=== PATIENT | female | born 1935 | race Caucasian/White ===

== ENCOUNTER 2016-05-27 14:55 | Emergency (ER) | payer OTHER ==
[~2016-05-27] VITALS: Ht 160 cm; Wt 100.0 kg
[~2016-05-27 14:55] MED LIST: HYDR-2768 PO; OMEP20TA39 PO; TRAM50 PO
[2016-05-27 15:21] VITALS: BP 150/65; PULSE 109; RESP 22; TEMP 102.8; O2SAT 93
[2016-05-27] MEDS ORDERED: OMEP40CA2 PO (15:34)
[2016-05-27] MEDS ORDERED: POTA99TA PO (15:34)
[2016-05-27] MEDS ORDERED: LEVO50TA4 PO (15:34)
[2016-05-27] MEDS ORDERED: VITA500030 CHEW (15:34)
[2016-05-27] MEDS ORDERED: HYDR25TA5 PO (15:34)
[2016-05-27] MEDS ORDERED: BUSP5TAB PO (15:34)
[2016-05-27 15:40] VITALS: BP 139/67; PULSE 120; RESP 18; TEMP 102.2; O2SAT 91
[2016-05-27] MEDS ORDERED: cefTAZidime INJ 2,000 MG in SODIUM CHLORIDE 0.9% INJ 100 ML IV ONE (15:45)
[2016-05-27] MEDS ORDERED: ACETAMINOPHEN 325 MG TAB PO ONE (15:45)
[2016-05-27] MEDS ORDERED: IBUPROFEN 600 MG TAB PO ONE (15:45)
[2016-05-27 15:49] VITALS: O2SAT 93
--- NOTE | 2016-05-27 15:54 | PD ---
HPI Chief Complaint: Fever Time Seen by Provider: 15:34 Travel History International Travel<30 days: No Contact w/Intl Traveler<30days: No Traveled to known affect area: No History of Present Illness HPI This patient complains of fever and chills. Duration 4 hours. Severity is moderate. She has been coughing for 4-5 days sometimes dry and sometimes thick phlegm. Denies shortness of breath. She is not having any abdominal pain or diarrhea or vomiting today. She had a liver biopsy earlier today at [facility] but she has absolute no idea why. No alleviating factors. PFSH Past Medical History Arthritis: Yes Asthma: No Autoimmune Disease: No Blood Disorders: No Anxiety: No Depression: No Heart Rhythm Problems: No Cancer: Yes ( LIVER 2005, LEFT BREAST 2010) Cardiovascular Problems: Yes High Cholesterol: Yes Chemotherapy: Yes (2005, 2010) Chest Pain: Yes (today) Congestive Heart Failure: No COPD: No Cerebrovascular Accident: No Diabetes: No Diminished Hearing: No Endocrine: Yes Gastrointestinal Disorders: Yes GERD: Yes Glaucoma: No Genitourinary: No Headaches: Yes Hepatitis: No Hiatal Hernia: Yes Hypertension: Yes Immune Disorder: No Kidney Stones: No Musculoskeletal: Yes (rt shoulder ? rotator cuff) Neurologic: No Psychiatric: No Reproductive: No Respiratory: Yes Migraines: No Myocardial Infarction: No Radiation Therapy: No Renal Failure: No Seizures: No Sleep Apnea: No Thyroid Disease: Yes (HYPOTHYROIDISM) Ulcer: Yes (PYLORIC) Influenza Vaccination: Yes ?: Not : 4 Para: 4 Ovarian Cysts: Yes Past Surgical History Abdominal Surgery: Yes (PEGGY) AICD: No Appendectomy: No Arteriovenous Shunt: No Cardiac Surgery: No Cholecystectomy: Yes Ear Surgery: No Endocrine Surgery: No Eye Surgery: No Genitourinary Surgery: No Gynecologic Surgery: Yes (HYSTERECTOMY) Hysterectomy: Yes Insulin Pump: No Joint Replacement: No Oral Surgery: Yes Pacemaker: No Thoracic Surgery: No Tonsillectomy: Yes Other Surgery: Yes (hyster, GB, teeth removed) Social History Alcohol Use: Yes (RARELY) Tobacco Use: No Substance Use: No Allergies-Medications (Allergen,Severity, Reaction): Coded Allergies: No Known Allergies (Verified , 05/27/16) Reported Meds & Prescriptions Reported Meds & Active Scripts Active Reported Buspirone (Buspirone HCl) 5 Mg Tab 5 Mg PO BID PRN Potassium 99 Mg Tab 1 Tab PO DAILY Omeprazole 40 Mg Cap 40 Mg PO DAILY Hydrochlorothiazide 25 Mg Tab 25 Mg PO DAILY Vitamin D3 (Cholecalciferol) 5,000 Unit Chew 5,000 Units CHEW DAILY Levothyroxine (Levothyroxine Sodium) 50 Mcg Tab 50 Mcg PO DAILY Review of Systems General / Constitutional: Positive: Fever, Chills Eyes: No: Visual changes HENT: No: Headaches Cardiovascular: Positive: Tachycardia, No: Chest Pain or Discomfort Respiratory: Positive: Cough, No: Shortness of Breath Gastrointestinal: No: Abdominal Pain Genitourinary: No: Dysuria Musculoskeletal: No: Pain Skin: No Rash Neurologic: No: Weakness Psychiatric: No: Depression Endocrine: No: Polydipsia Hematologic/Lymphatic: No: Easy Bruising Physical Exam Narrative GENERAL: Well-nourished, well-developed patient with fever and chills. SKIN: Warm and dry. HEAD: Atraumatic. Normocephalic. EYES: Pupils equal and round. No scleral icterus. No injection or drainage. ENT: No nasal bleeding or discharge. Mucous membranes pink and moist. Throat clear NECK: Trachea midline. No JVD. No meningeal signs CARDIOVASCULAR: Regular rate and rhythm. No murmur appreciated. RESPIRATORY: No accessory muscle use. Diffuse rhonchi. Breath sounds equal bilaterally. Sparse basilar crackles GASTROINTESTINAL: Abdomen soft, non-tender, nondistended. Hepatic and splenic margins not palpable. MUSCULOSKELETAL: No obvious deformities. No clubbing. No cyanosis. No edema. NEUROLOGICAL: Awake and alert. No obvious cranial nerve deficits. Motor grossly within normal limits. Normal speech. PSYCHIATRIC: Appropriate mood and affect; insight and judgment normal. Data Data Last Documented VS Vital Signs Date Time Temp Pulse Resp B/P Pulse Ox O2 Delivery O2 Flow Rate FiO2 05/27/16 17:15 99.0 96 18 115/53 96 Nasal Cannula 2 Orders Complete Blood Count With Diff (05/27/16 15:44) Comprehensive Metabolic Panel (05/27/16 15:44) Urinalysis - C+S If Indicated (05/27/16 15:44) Influenzae A/B Antigen (05/27/16 15:44) Blood Culture (05/27/16 15:44) Chest, Single Ap (05/27/16 15:44) Ecg Monitoring (05/27/16 15:44) Iv Access Insert/Monitor (05/27/16 15:44) Cath For Specimen (05/27/16 15:44) Oximetry (05/27/16 15:44) Acetaminophen (Tylenol) (05/27/16 15:45) Ibuprofen (Motrin) (05/27/16 15:45) Ceftazidime Inj (Fortaz Inj) (05/27/16 15:45) Lactic Acid (05/27/16 15:44) Sodium Chlor 0.9% 1000 Ml Inj (Ns 1000 M (05/27/16 16:15) Labs Laboratory Tests Test 05/27/16 05/27/16 05/27/16 16:00 16:37 16:58 White Blood Count 7.3 TH/MM3 Red Blood Count 4.43 MIL/MM3 Hemoglobin 13.7 GM/DL Hematocrit 39.5 % Mean Corpuscular Volume 89.3 FL Mean Corpuscular Hemoglobin 31.0 PG Mean Corpuscular Hemoglobin 34.7 % Concent Red Cell Distribution Width 12.9 % Platelet Count 145 TH/MM3 Mean Platelet Volume 8.2 FL Neutrophils (%) (Auto) 93.5 % Lymphocytes (%) (Auto) 3.6 % Monocytes (%) (Auto) 1.6 % Eosinophils (%) (Auto) 0.5 % Basophils (%) (Auto) 0.8 % Neutrophils # (Auto) 6.8 TH/MM3 Lymphocytes # (Auto) 0.3 TH/MM3 Monocytes # (Auto) 0.1 TH/MM3 Eosinophils # (Auto) 0.0 TH/MM3 Basophils # (Auto) 0.1 TH/MM3 CBC Comment DIFF FINAL Differential Comment Lactic Acid Level 1.7 mmol/L Sodium Level 143 MEQ/L Potassium Level 3.3 MEQ/L Chloride Level 106 MEQ/L Carbon Dioxide Level 27.7 MEQ/L Anion Gap 9 MEQ/L Blood Urea Nitrogen 14 MG/DL Creatinine 0.87 MG/DL Estimat Glomerular Filtration 62 ML/MIN Rate Random Glucose 154 MG/DL Calcium Level 8.2 MG/DL Total Bilirubin 2.4 MG/DL Aspartate Amino Transf 179 U/L (AST/SGOT) Alanine Aminotransferase 79 U/L (ALT/SGPT) Alkaline Phosphatase 336 U/L Total Protein 5.3 GM/DL Albumin 2.8 GM/DL Urine Color JENNY Urine Turbidity CLEAR Urine pH 5.5 Urine Specific [place] 1.020 Urine Protein TRACE mg/dL Urine Glucose (UA) NEG mg/dL Urine Ketones 40 mg/dL Urine Occult Blood SMALL Urine Nitrite NEG Urine Bilirubin NEG Urine Leukocyte Esterase NEG Urine RBC 0-3 /hpf Urine WBC 0-2 /hpf Urine Squamous Epithelial 0-5 /hpf Cells Urine Bacteria NONE /hpf Microscopic Urinalysis Comment CULT NOT INDICATED MDM Medical Decision Making Medical Screen Exam Complete: Yes Emergency Medical Condition: Yes Medical Record Reviewed: Yes Differential Diagnosis Pneumonia, sepsis, flu syndrome Narrative Course I have reviewed the patient's electronic medical record. Reviewed her oncologist note from last month IV placed 2 blood culture sets obtained I gave HER-2 grams IV Fortaz She received Tylenol and Motrin for fever of 102.8 CBC is normal Metabolic profile is normal LFTs are mildly elevated but I suspect this may be why she had a liver biopsy Lactate is normal Catheterized urine is clean I reviewed her chest x-ray which shows hiatal hernia which is a known chronic finding but no other suspicion of pneumonia Influenza swab is negative Patient seems to have a viral syndrome or bronchitis. I don't really see evidence of bacterial infection On reassessment her temperature is normal and now her entire vital signs are normal Tachycardia resolved with her fever I gave her a liter of normal saline IV and she is well-hydrated On recheck she feels well and wants to go home Recommend primary care follow-up Diagnosis Primary Impression: Fever chills Additional Impression: Acute viral bronchitis Additional Instructions: The patient was advised to follow up with their physician and return if they worsen. Med/Other Pt SpecificInfo: Other Disposition: 01 DISCHARGE HOME Condition: Stable Sivakumar Kinney MD May 27, 2016 15:54
--- NOTE | 2016-05-27 16:09 | RADHPO ---
EXAM DATE/TIME: 05/27/2016 15:52 [facility] COMPARISON: No previous studies available for comparison. INDICATIONS : Fever. Patient states shortness of breath and chest pains. MEDICAL HISTORY : Hypertension. Hypercholesterolemia. Liver and left breast cancer. Hiatal h ernia. SURGICAL HISTORY : [id number] . ENCOUNTER: Initial ACUITY: 3 days PAIN SCORE: 4/10 LOCATION: Bilateral chest FINDINGS: [id number] is in good position. There is a large hiatal hernia evident. Heart and pulmonary vascularity are normal. Portions of the bony skeleton visualized are unremarkable. CONCLUSION: Large hiatal hernia otherwise negative. Frank Watts MD FACR on May 27, 2016 at 16:06 Board Certified Radiologist. This report was verified electronically.
[2016-05-27] MEDS ORDERED: SODIUM CHLOR 0.9% 1000 ML INJ 1,000 ML IV ONE (16:15)
[2016-05-27 16:22] LABS: AUTOMATED NEUTROPHIL # 6.8 TH/MM3 (1.8-7.7); BASOPHIL # 0.1 TH/MM3 (0-0.2); BASOPHIL % 0.8 % (0.0-2.0); EOSINOPHIL % 0.5 % (0.0-4.0); HEMATOCRIT 39.5 % (35.0-46.0); LYMPH % 3.6 % (9.0-44.0); LYMPHOCYTE # 0.3 TH/MM3 (1.0-4.8); MEAN CELL VOLUME 89.3 FL (80.0-100.0); MEAN CORPUSCULAR HGB CONC 34.7 % (32.0-36.0); MONO % 1.6 % (0.0-8.0); NEUT % 93.5 % (16.0-70.0); PLATELET COUNT 145 TH/MM3 (150-450); RED BLOOD COUNT 4.43 MIL/MM3 (4.00-5.30); RED CELL DISTRIBUTION WIDTH 12.9 % (11.6-17.2); WHITE BLOOD COUNT 7.3 TH/MM3 (4.0-11.0)
[2016-05-27 16:26] LABS: HEMO FLAGS DIFF FINAL
[2016-05-27 16:49] LABS: CHLORIDE 106 MEQ/L (98-107); POTASSIUM 3.3 MEQ/L (3.5-5.1); SODIUM (NA) 143 MEQ/L (136-145)
[2016-05-27 16:53] LABS: ANION GAP 9 MEQ/L (5-15); BICARBONATE 27.7 MEQ/L (21.0-32.0); BLOOD UREA NITROGEN 14 MG/DL (7-18)
[2016-05-27 16:56] LABS: ALT (GPT) 79 U/L (10-53); AST (GOT) 179 U/L (15-37); GLOMERULAR FILTRATION RATE 62 ML/MIN (>89)
[2016-05-27 16:58] LABS: TOTAL BILIRUBIN ADULT 2.4 MG/DL (0.2-1.0)
[2016-05-27 16:59] LABS: ALKALINE PHOSPHATASE 336 U/L (45-117)
[2016-05-27 17:05] VITALS: BP 124/47; PULSE 103; RESP 18; O2SAT 96
[2016-05-27 17:06] LABS: BLOOD, URINE SMALL (NEG); GLUCOSE,URINE NEG (NEG); KETONE, URINE 40 mg/dL (NEG); NITRITE,URINE NEG (NEG); PH, URINE 5.5 (5.0-8.5)
[2016-05-27 17:13] LABS: COMMENT (UR) CULT NOT INDICATED; CULTURE IF INDICATED CULT NOT INDICATED; RBC, URINE 0-3 /hpf (0-3); SQUAMOUS EPITHELIAL CELL URINE 0-5 /hpf (0-5); URINE COLOR AMBER (YELLW/STRAW); WBC, URINE 0-2 /hpf (0-5)
[2016-05-27 17:15] VITALS: BP 115/53; PULSE 96; RESP 18; TEMP 99; O2SAT 96
[2016-05-27 18:16] VITALS: BP 101/52; PULSE 96; RESP 20; O2SAT 94
== END 2016-05-27 18:40 | disposition home or self-care (01) ==
LOC: PHED 14:55
DX: R50.9 Fever, unspecified (principal); J20.8 Acute bronchitis due to other specified organisms; B97.89 Other viral agents as the cause of diseases classified elsewhere; I10 Essential (primary) hypertension; E03.9 Hypothyroidism, unspecified; E78.00 Pure hypercholesterolemia, unspecified; Z98.890 Other specified postprocedural states; Z87.39 Personal history of other diseases of the musculoskeletal system and connective tissue; Z85.05 Personal history of malignant neoplasm of liver; Z85.3 Personal history of malignant neoplasm of breast; Z86.79 Personal history of other diseases of the circulatory system; Z87.19 Personal history of other diseases of the digestive system; Z87.09 Personal history of other diseases of the respiratory system
CPT/HCPCS: 71010; 80053; 81001; 83605; 85025; 87040; 87077; 87186; 87205; 87804; 96361; 96365; J0713; J7030

== ENCOUNTER 2016-05-28 10:58 | Inpatient (IN) | payer OTHER, MEDICARE ==
[~2016-05-28] VITALS: Ht 160 cm; Wt 98.5 kg
[~2016-05-28 10:58] MED LIST changes: +BUSP5TAB PO; -HYDR-2768 PO; +HYDR25TA5 PO; +LEVO50TA4 PO; -OMEP20TA39 PO; +OMEP40CA2 PO; +POTA99TA PO; -TRAM50 PO; +VITA500030 CHEW
[2016-05-28 11:10] VITALS: BP 139/65; PULSE 71; RESP 20; TEMP 97.8; O2SAT 97
[2016-05-28 11:37] VITALS: BP 137/54; PULSE 70; RESP 16; O2SAT 97
[2016-05-28] MEDS ORDERED: PIPERACIL-TAZO 3.375 GM PREMIX 50 ML IV ONE (11:45)
[2016-05-28] MEDS ORDERED: SODIUM CHLORID 0.9% 500 ML INJ 500 ML IV ONE (11:45)
[2016-05-28 11:47] LABS: AUTOMATED NEUTROPHIL # 10.8 TH/MM3 (1.8-7.7); BASOPHIL % 0.2 % (0.0-2.0); EOSINOPHIL % 0.4 % (0.0-4.0); HEMATOCRIT 39.5 % (35.0-46.0); LYMPH % 2.6 % (9.0-44.0); LYMPHOCYTE # 0.3 TH/MM3 (1.0-4.8); MEAN CELL VOLUME 89.8 FL (80.0-100.0); MEAN CORPUSCULAR HEMOGLOBIN 30.3 PG (27.0-34.0); MEAN CORPUSCULAR HGB CONC 33.7 % (32.0-36.0); MONO % 3.2 % (0.0-8.0); NEUT % 93.6 % (16.0-70.0); PLATELET COUNT 155 TH/MM3 (150-450); RED CELL DISTRIBUTION WIDTH 12.9 % (11.6-17.2); WHITE BLOOD COUNT 11.5 TH/MM3 (4.0-11.0)
[2016-05-28 11:48] LABS: HEMO FLAGS AUTO DIFF
[2016-05-28 11:59] LABS: APTT (PATIENT) 30.5 SEC (24.3-30.1); INTERNATIONAL NORMALIZED RATIO 1.1 RATIO
[2016-05-28 12:04] LABS: POTASSIUM 3.3 MEQ/L (3.5-5.1)
--- NOTE | 2016-05-28 12:04 | PD ---
HPI Chief Complaint: Abnormal Results Time Seen by Provider: 11:19 Travel History International Travel<30 days: No Contact w/Intl Traveler<30days: No Traveled to known affect area: No History of Present Illness HPI Patient is an 80-year-old female who comes to the emergency department because she was called back due to positive blood cultures. She was seen here yesterday complaining of cough and feeling unwell. She was found to be febrile and blood culture were sent. Blood cultures found to be growing gram-negative rods in all 4 bottles. Today patient states she still feels unwell. She has been coughing and just feeling generally run down for the past few days. She has history of lymphoma that was in remission. However she was recently found to have elevated liver function testing, and underwent a liver biopsy yesterday. She does not know the results of this yet. Patient says she has had rigorous chills. She denies chest pain. She denies shortness of breath. She has not had nausea or vomiting. She does report abdominal pain. PFSH Past Medical History Arthritis: Yes Asthma: No Autoimmune Disease: No Blood Disorders: No Anxiety: No Depression: No Heart Rhythm Problems: No Cancer: Yes ( LIVER 2005, LEFT BREAST 2010) Cardiovascular Problems: Yes High Cholesterol: Yes Chemotherapy: Yes (2005, 2010) Chest Pain: Yes (today) Congestive Heart Failure: No COPD: No Cerebrovascular Accident: No Diabetes: No Diminished Hearing: No Endocrine: Yes Gastrointestinal Disorders: Yes GERD: Yes Glaucoma: No Genitourinary: No Headaches: Yes Hepatitis: No Hiatal Hernia: Yes Hypertension: Yes Immune Disorder: No Implanted Vascular Access Dvce: No Kidney Stones: No Musculoskeletal: Yes (rt shoulder ? rotator cuff) Neurologic: No Psychiatric: No Reproductive: No Respiratory: Yes Migraines: No Myocardial Infarction: No Radiation Therapy: No Renal Failure: No Seizures: No Sleep Apnea: No Thyroid Disease: Yes (HYPOTHYROIDISM) Ulcer: Yes (PYLORIC) Tetanus Vaccination: Unknown ?: Not : 4 Para: 4 Ovarian Cysts: Yes Past Surgical History Abdominal Surgery: Yes (PEGGY) AICD: No Appendectomy: No Arteriovenous Shunt: No Cardiac Surgery: No Cholecystectomy: Yes Ear Surgery: No Endocrine Surgery: No Eye Surgery: No Genitourinary Surgery: No Gynecologic Surgery: Yes (HYSTERECTOMY) Hysterectomy: Yes Insulin Pump: No Joint Replacement: No Neurologic Surgery: No Oral Surgery: Yes Pacemaker: No Thoracic Surgery: No Tonsillectomy: Yes Other Surgery: Yes (hyster, GB, teeth removed) Social History Alcohol Use: Yes (RARELY) Tobacco Use: No Substance Use: No Allergies-Medications (Allergen,Severity, Reaction): Coded Allergies: No Known Allergies (Verified , 05/28/16) Reported Meds & Prescriptions Reported Meds & Active Scripts Active Reported Buspirone (Buspirone HCl) 5 Mg Tab 5 Mg PO BID PRN Potassium 99 Mg Tab 1 Tab PO DAILY Omeprazole 40 Mg Cap 40 Mg PO DAILY Hydrochlorothiazide 25 Mg Tab 25 Mg PO DAILY Vitamin D3 (Cholecalciferol) 5,000 Unit Chew 5,000 Units CHEW DAILY Levothyroxine (Levothyroxine Sodium) 50 Mcg Tab 50 Mcg PO DAILY Review of Systems Except as stated in HPI: all other systems reviewed are Neg General / Constitutional: Positive: Fever, Chills HENT: No: Headaches Cardiovascular: No: Chest Pain or Discomfort Respiratory: Positive: Cough, No: Shortness of Breath Gastrointestinal: Positive: Abdominal Pain Genitourinary: No: Dysuria Musculoskeletal: Positive: Myalgias Skin: No Rash Neurologic: No: Weakness, Dizziness Physical Exam Narrative GENERAL: Awake and alert, in no acute distress. SKIN: Warm and dry. HEAD: Atraumatic. Normocephalic. EYES: Pupils equal and round. No scleral icterus. ENT: Mucous membranes pink and moist. NECK: Trachea midline. No JVD. CARDIOVASCULAR: Regular rate and rhythm. No murmur appreciated. RESPIRATORY: No accessory muscle use. Clear to auscultation. Breath sounds equal bilaterally. GASTROINTESTINAL: Abdomen soft, nondistended. Dressing in place of her biopsy site, no signs of bleeding. Tender over the right upper quadrant. No rebound or guarding. MUSCULOSKELETAL: No obvious deformities. No clubbing. No cyanosis. No edema. NEUROLOGICAL: Awake and alert. No obvious cranial nerve deficits. Motor grossly within normal limits. Normal speech. PSYCHIATRIC: Appropriate mood and affect; insight and judgment normal. Data Data Last Documented VS Vital Signs Date Time Temp Pulse Resp B/P Pulse Ox O2 Delivery O2 Flow Rate FiO2 05/28/16 12:44 72 16 110/50 98 Room Air 05/28/16 11:10 97.8 Orders Complete Blood Count With Diff (05/28/16 11:33) Basic Metabolic Panel (Bmp) (05/28/16 11:33) Hepatic Functional Panel (05/28/16 11:33) Act Partial Throm Time (Ptt) (05/28/16 11:33) Prothrombin Time / Inr (Pt) (05/28/16 11:33) Blood Culture (05/28/16 11:33) Sodium Chlorid 0.9% 500 Ml Inj (Ns 500 M (05/28/16 11:45) Piperacil-Tazo 3.375 Gm Premix (Zosyn 3. (05/28/16 11:45) Ct Abd/Pel W Iv Contrast(Rout) (05/28/16 ) Chest, Pa & Lat (05/28/16 ) Admit Order (Ed Use Only) (05/28/16 ) Piperacil-Tazo 3.375 Gm Premix (Zosyn 3. (05/28/16 18:00) Lactic Acid Sepsis Protocol (05/28/16 13:38) Consult Infectious Disease (05/28/16 ) Admit To Inpatient (05/28/16 ) Vital Signs (Adult) Q4H (05/28/16 13:38) Activity Oob Ad Shae (05/28/16 13:38) Diet Regular Basic (05/28/16 Lunch) Sodium Chlor 0.9% 1000 Ml Inj (Ns 1000 M (05/28/16 13:38) Sodium Chloride 0.9% Flush (Ns Flush) (05/28/16 13:45) Sodium Chloride 0.9% Flush (Ns Flush) (05/28/16 21:00) Acetaminophen (Tylenol) (05/28/16 13:45) Ondansetron Inj (Zofran Inj) (05/28/16 13:45) Docusate Sodium (Colace) (05/28/16 13:45) Magnesium Hydroxide Liq (Milk Of Magnesi (05/28/16 13:45) Comprehensive Metabolic Panel (05/29/16 06:00) Complete Blood Count With Diff (05/29/16 06:00) Pt Request For Service (05/28/16 13:38) Case Management Consult (05/28/16 13:38) Scd Bilateral/Knee High RYAN.BID (05/28/16 13:38) Naloxone Inj (Narcan Inj) (05/28/16 13:45) Inpatient Certification (05/28/16 ) Labs Laboratory Tests Test 05/28/16 05/28/16 11:15 13:25 White Blood Count 11.5 TH/MM3 Red Blood Count 4.40 MIL/MM3 Hemoglobin 13.3 GM/DL Hematocrit 39.5 % Mean Corpuscular Volume 89.8 FL Mean Corpuscular Hemoglobin 30.3 PG Mean Corpuscular Hemoglobin 33.7 % Concent Red Cell Distribution Width 12.9 % Platelet Count 155 TH/MM3 Mean Platelet Volume 8.2 FL Neutrophils (%) (Auto) 93.6 % Lymphocytes (%) (Auto) 2.6 % Monocytes (%) (Auto) 3.2 % Eosinophils (%) (Auto) 0.4 % Basophils (%) (Auto) 0.2 % Neutrophils # (Auto) 10.8 TH/MM3 Lymphocytes # (Auto) 0.3 TH/MM3 Monocytes # (Auto) 0.4 TH/MM3 Eosinophils # (Auto) 0.0 TH/MM3 Basophils # (Auto) 0.0 TH/MM3 CBC Comment AUTO DIFF Differential Total Cells 100 Counted Neutrophils % (Manual) 61 % Band Neutrophils % 34 % Lymphocytes % 3 % Monocytes % 1 % Basophils % 1 % Neutrophils # (Manual) 10.9 TH/MM3 Differential Comment FINAL DIFF MANUAL Platelet Estimate NORMAL Platelet Morphology Comment NORMAL Red Cell Morphology Comment NORMAL Erythrocyte Sedimentation Rate 8 mm/hr Prothrombin Time 12.0 SEC Prothromb Time International 1.1 RATIO Ratio Activated Partial 30.5 SEC Thromboplast Time Sodium Level 142 MEQ/L Potassium Level 3.3 MEQ/L Chloride Level 107 MEQ/L Carbon Dioxide Level 25.5 MEQ/L Anion Gap 10 MEQ/L Blood Urea Nitrogen 22 MG/DL Creatinine 1.00 MG/DL Estimat Glomerular Filtration 53 ML/MIN Rate Random Glucose 80 MG/DL Calcium Level 8.1 MG/DL Total Bilirubin 3.0 MG/DL Direct Bilirubin 1.5 MG/DL Indirect Bilirubin 1.5 MG/DL Aspartate Amino Transf 94 U/L (AST/SGOT) Alanine Aminotransferase 107 U/L (ALT/SGPT) Alkaline Phosphatase 282 U/L Lactate Dehydrogenase 294 U/L Total Protein 5.6 GM/DL Albumin 2.9 GM/DL Lactic Acid Level 2.2 mmol/L MDM Medical Decision Making Medical Screen Exam Complete: Yes Emergency Medical Condition: Yes Medical Record Reviewed: Yes Differential Diagnosis Bacteremia versus sepsis versus pneumonia versus intra-abdominal infection Narrative Course Patient is an 80-year-old female who comes in because she had positive blood cultures. She says she has been feeling unwell for the past few days, with cough and just general malaise. She also reports shaking chills. IV established, patient connected to the cloth handler. Labs sent show an elevation in her white count to 11.5. Her liver function testing is grossly abnormal. This is likely why she had a liver biopsy performed yesterday. X-ray shows no evidence of pneumonia. CT abdomen and pelvis ordered due to abnormal liver function tests. Patient given Zosyn. Admitted for further management. Diagnosis Primary Impression: Bacteremia Admitting Information Admitting Physician Requests: Admit Lyndsay Crenshaw MD May 28, 2016 12:04
[2016-05-28 12:07] LABS: BANDS 34 % (0-6); BASOPHILS 1 % (0-2); NEUTROPHIL # MANUAL DIFF 10.9 TH/MM3 (1.8-7.7); POLYS (SEG NEUTROPHILS) 61 % (16-70); WBC DIFF SAMPLE 100
[2016-05-28 12:08] LABS: BICARBONATE 25.5 MEQ/L (21.0-32.0); PLATELET ESTIMATE SMEAR NORMAL (NORMAL); PLATELET MORPHOLOGY NORMAL (NORMAL); SCAN/DIFF FINAL DIFF MANUAL
[2016-05-28 12:13] LABS: INDIRECT BILIRUBIN 1.5 MG/DL (0.0-0.8)
[2016-05-28 12:44] VITALS: BP 110/50; PULSE 72; RESP 16; O2SAT 98
--- NOTE | 2016-05-28 13:01 | RADHPO ---
EXAM DATE/TIME: 05/28/2016 12:22 [facility] COMPARISON: CHEST SINGLE AP, May 27, 2016, 15:52. INDICATIONS : Cough. Abnormal lab results from yesterday's ED visit. Patient is also post liver biopsy from another facility yesterday. MEDICAL HISTORY : Lupus. Ulcers. Gastroesophageal reflux disease. Hypertension. Hypercholesterolemia. Liver and lef t breast cancer. Hiatal hernia. SURGICAL HISTORY : Tonsillectomy. Cholecystectomy. Hysterectomy. [id number] . ENCOUNTER: [facility] ACUITY: 2 days PAIN SCORE: 0/10 LOCATION: chest FINDINGS: PA and lateral views of the chest demonstrate the lungs to be symmetrically aerated without evidence of mass, infiltrate or effusion. The cardiomediastinal contours are unremarkable. There is a moderat e size retrocardiac hiatal hernia in noted. Atherosclerotic calcifications are present in the aorta. The right-sided implantable port catheter remains in place. Osseous structures are intact. CONCLUSION: 1. No acute cardiopulmonary disease. 2. Moderate size retrocardiac hiatal hernia. Andry Tony MD on May 28, 2016 at 12:59 Board Certified Radiologist. This report was verified electronically.
[2016-05-28] MEDS ORDERED: ONDANSETRON HCL 4 MG/2 ML VIAL IVP PRN (13:45)
[2016-05-28] MEDS: DOCUSATE SODIUM 100 MG CAP PO SCH ×2 (13:45→23:55)
[2016-05-28] MEDS ORDERED: busPIRone HCL 5 MG TAB PO PRN (13:45)
[2016-05-28] MEDS ORDERED: MAGNESIUM HYDROXIDE SUSP 30 ML CUP PO PRN (13:45)
[2016-05-28] MEDS ORDERED: ACETAMINOPHEN 325 MG TAB PO PRN (13:45)
[2016-05-28] MEDS ORDERED: NALOXONE HCL 0.4 MG/ML AMP IV PRN (13:45)
[2016-05-28] MEDS ORDERED: IOHEXOL 350 MG/ML 10 ML VIAL (for RAD DIAG) IV ONE (13:48)
--- NOTE | 2016-05-28 14:01 | RADHPO ---
EXAM DATE/TIME: 05/28/2016 13:32 [facility] COMPARISON: CT PULMONARY ANGIOGRAM, June 09, 2013, 5:59. INDICATIONS : Abnormal lab results. Fever and infection. IV CONTRAST: 90 cc Omnipaque 350 (iohexol) IV ORAL CONTRAST: No oral contrast ingested. RADIATION DOSE: 21.99 CTDIvol (mGy) MEDICAL HISTORY : Lymphoma. Carcinoma, breast. Hypertension.Liver cancer. SURGICAL HISTORY : Hysterectomy. ENCOUNTER: Initial ACUITY: 2 days PAIN SCALE: 0/10 LOCATION: abdomen/pelvis TECHNIQUE: Volumetric scanning of the abdomen and pelvis was performed. Using automated exposure control and ad justment of the mA and/or kV according to patient size, radiation dose was kept as low as reasonably achievable to obtain optimal diagnostic quality images. FINDINGS: The limited portion of the lung base visualized is clear. The examination does demonstrate a large hi atal hernia. The appearance of the liver, spleen, pancreas, adrenal glands and kidneys is within normal limits. Th e patient is post cholecystectomy. There is atherosclerotic plaquing in the abdominal aorta. The abdominal aorta is somewhat small in si ze but patent throughout its course. There is no retroperitoneal lymphadenopathy. The visualized loops of small and large bowel in the upper abdomen are unremarkable. The patient is post hysterectomy. The left ovary is visualized and measures approximately 1 cm. There is no free fluid within the pelvis. No iliac or inguinal adenopathy is seen. The visualized bony structures demonstrate degenerative changes but are otherwise intact. CONCLUSION: 1. Large hiatal hernia. 2. The patient is post cholecystectomy. 3. There are degenerative changes of the spine. 4. No findings to indicate intra-abdominal abscess identified. Brian Watts MD on May 28, 2016 at 13:55 Board Certified Radiologist. This report was verified electronically.
[2016-05-28] MEDS: SODIUM CHLOR 0.9% 1000 ML INJ 1,000 ML IV SCH ×2 (14:08→23:56)
[2016-05-28 15:29] LABS: BLOOD, URINE TRACE (NEG); GLUCOSE,URINE NEG (NEG); KETONE, URINE TRACE mg/dL (NEG); NITRITE,URINE NEG (NEG); PH, URINE 5.5 (5.0-8.5)
[2016-05-28 15:32] VITALS: BP 134/67; PULSE 69; RESP 16; O2SAT 98
[2016-05-28 15:48] LABS: LACTIC ACID GHOST NOT REPORTABLE
[2016-05-28 16:25] LABS: METHOD OF COLLECTION CLEAN CATCH; URINE COLOR YELLOW (YELLW/STRAW)
[2016-05-28 16:26] LABS: WBC, URINE 0-2 /hpf (0-5)
[2016-05-28 16:27] LABS: SQUAMOUS EPITHELIAL CELL URINE 0-5 /hpf (0-5)
--- NOTE | 2016-05-28 16:55 | HHI.HP ---
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 She was referred for a liver biopsy by her lieutenant ballistics Dr. Gonzales. She underwent this procedure yesterday at [facility]. After the procedure she started to have shaking chills. These chills continued into the evening along with a fever of 103 and so she presented to the ER last night. She also has complained of a cough productive of clear sputum over the past 4-5 days however that has been improving and she has not had any shortness of breath. Blood cultures were taken last night in the ER but as the patient seemed to be feeling better she was diagnosed with a virus infection and sent home. Today the blood cultures are growing gram-negative rods in 2 sets. She was called by the ER and referred back in for further evaluation. The patient denies any nausea vomiting abdominal pain. Doesn't denies any dysuria. She has had a cholecystectomy in the past. She denies any in on any antibiotics recently. Denies previous history of sepsis. Of note about a month ago she was having some left-sided sharp abdominal pain and occasional morning emesis for which she was seeing Dr. tripathi ago but this has resolved. Review of Systems Constitutional: COMPLAINS OF: Fever, Chills Respiratory: COMPLAINS OF: Cough, Sputum production, DENIES: Shortness of breath Cardiovascular: DENIES: Chest pain, Palpitations Gastrointestinal: DENIES: Abdominal pain, Diarrhea, Nausea, Vomiting Genitourinary: DENIES: Urinary frequency, Dysuria Musculoskeletal: DENIES: Back pain, Neck pain Integumentary: DENIES: Pruritus, Rash Hematologic/lymphatic: DENIES: Lymphadenopathy Neurologic: DENIES: Headache Psychiatric: COMPLAINS OF: Anxiety, DENIES: Confusion Past Family Social History Past Medical History Anxiety for which she takes BuSpar own when necessary Hiatal hernia 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, stopped en route to extend this past March has history of 3 relapses in the past Hypertension Transaminitis and elevation of bilirubin Hyperlipidemia Hypothyroidism Obesity Past Surgical History Cholecystectomy Hysterectomy Liver biopsy and intra-abdominal biopsy Reported Medications Allergies Coded Allergies Type Severity Reaction Last Updated Verified No Known Allergies 05/28/16 Yes Active Scripts Medications Dose Route/Sig Days Date Category Buspirone (Buspirone HCl) 5 Mg Tab 5 Mg PO BID PRN 05/27/16 Reported Potassium 99 Mg Tab 1 Tab PO DAILY 05/27/16 Reported Omeprazole 40 Mg Cap 40 Mg PO DAILY 05/27/16 Reported Hydrochlorothiazide 25 Mg Tab 25 Mg PO DAILY 05/27/16 Reported Vitamin D3 (Cholecalciferol) 5,000 Unit Chew 5,000 Units CHEW DAILY 05/27/16 Reported Levothyroxine (Levothyroxine Sodium) 50 Mcg Tab 50 Mcg PO DAILY 05/27/16 Reported Allergies: Coded Allergies: No Known Allergies (Verified , 05/28/16) Family History Her mother had CHF Social History . No history of tobacco use. Physical Exam Vital Signs Vital Signs Date Time Temp Pulse Resp B/P Pulse Ox O2 Delivery O2 Flow Rate FiO2 05/28/16 15:32 69 16 134/67 98 Room Air 05/28/16 12:44 72 16 110/50 98 Room Air 05/28/16 11:37 70 16 137/54 97 Room Air 05/28/16 11:16 16 97 Room Air 05/28/16 11:10 97.8 71 20 139/65 97 Physical Exam GENERAL: Well-nourished, well-developed obese female patient. SKIN: Warm and dry. HEAD: Normocephalic. EYES: No scleral icterus. No injection or drainage. NECK: Supple, trachea midline. No JVD or lymphadenopathy. CARDIOVASCULAR: Regular rate and rhythm without murmurs, gallops, or rubs. RESPIRATORY: Breath sounds equal and clear to auscultation bilaterally. No accessory muscle use. GASTROINTESTINAL: Abdomen soft, non-tender, nondistended. EXTREMITIES: No cyanosis, or edema. NEUROLOGICAL: Awake, alert, and oriented x 3. Non-focal. Laboratory Laboratory Tests Test 05/28/16 05/28/16 05/28/16 11:15 13:25 15:15 White Blood Count 11.5 Red Blood Count 4.40 Hemoglobin 13.3 Hematocrit 39.5 Mean Corpuscular Volume 89.8 Mean Corpuscular Hemoglobin 30.3 Mean Corpuscular Hemoglobin 33.7 Concent Red Cell Distribution Width 12.9 Platelet Count 155 Mean Platelet Volume 8.2 Neutrophils (%) (Auto) 93.6 Lymphocytes (%) (Auto) 2.6 Monocytes (%) (Auto) 3.2 Eosinophils (%) (Auto) 0.4 Basophils (%) (Auto) 0.2 Neutrophils # (Auto) 10.8 Lymphocytes # (Auto) 0.3 Monocytes # (Auto) 0.4 Eosinophils # (Auto) 0.0 Basophils # (Auto) 0.0 CBC Comment AUTO DIFF Differential Total Cells 100 Counted Neutrophils % (Manual) 61 Band Neutrophils % 34 Lymphocytes % 3 Monocytes % 1 Basophils % 1 Neutrophils # (Manual) 10.9 Differential Comment FINAL DIFF MANUAL Platelet Estimate NORMAL Platelet Morphology Comment NORMAL Red Cell Morphology Comment NORMAL Erythrocyte Sedimentation Rate 8 Prothrombin Time 12.0 Prothromb Time International 1.1 Ratio Activated Partial 30.5 Thromboplast Time Sodium Level 142 Potassium Level 3.3 Chloride Level 107 Carbon Dioxide Level 25.5 Anion Gap 10 Blood Urea Nitrogen 22 Creatinine 1.00 Estimat Glomerular Filtration 53 Rate Random Glucose 80 Calcium Level 8.1 Total Bilirubin 3.0 Direct Bilirubin 1.5 Indirect Bilirubin 1.5 Aspartate Amino Transf 94 (AST/SGOT) Alanine Aminotransferase 107 (ALT/SGPT) Alkaline Phosphatase 282 Lactate Dehydrogenase 294 Total Protein 5.6 Albumin 2.9 Lactic Acid Level 2.2 Urine Collection Type CLEAN CATCH Urine Color YELLOW Urine Turbidity CLEAR Urine pH 5.5 Urine Specific [place] GREATER THAN 1.035 Urine Protein NEG Urine Glucose (UA) NEG Urine Ketones TRACE Urine Occult Blood TRACE Urine Nitrite NEG Urine Bilirubin SMALL Urine Leukocyte Esterase NEG Urine WBC 0-2 Urine Squamous Epithelial 0-5 Cells Date/Time Procedure Status Source Growth 05/28/16 15:15 Urine Culture Received Urine Clean Catch Pending 05/28/16 11:30 Aerobic Blood Culture Received Blood Peripheral Pending 05/28/16 11:30 Anaerobic Blood Culture Received Blood Peripheral Pending Result Diagram: 05/28/16 1115 05/28/16 1115 Imaging Last Impressions Chest X-Ray 05/28/16 0000 Signed Impressions: Service Date/Time: Saturday, May 28, 2016 12:22 - CONCLUSION: 1. No acute cardiopulmonary disease. 2. Moderate size retrocardiac hiatal hernia. Andry Tony MD Abdomen/Pelvis CT 05/28/16 0000 Signed Impressions: Service Date/Time: Saturday, May 28, 2016 13:32 - CONCLUSION: 1. Large hiatal hernia. 2. The patient is post cholecystectomy. 3. There are degenerative changes of the spine. 4. No findings to indicate intra-abdominal abscess identified. Brian Watts MD Assessment and Plan Assessment and Plan -Gram-negative edin bacteremia and sepsis, unclear source but presumably could be from the liver biopsy she underwent yesterday. We'll continue Zosyn IV. Clinically she is stable. We'll consult infectious disease for further input and recommendations. I will check a mandatory urine culture. Abdominal CT scan was negative. Initial lactate was 2.2 but repeat is 1.1. Continue IV fluids overnight. Anxiety - cont BuSpar own when necessary Hiatal hernia - continue Protonix. 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 Transaminitis and elevation of bilirubin - being followed by Dr. tripathi-ol[place]. Status post liver biopsy yesterday. Hyperlipidemia Hypothyroidism-continue Synthroid Obesity DVT prophylaxis with SCDs. Isaura Bazan MD May 28, 2016 16:55
[2016-05-28 17:38] VITALS: BP 143/75; PULSE 76; RESP 16; O2SAT 96
[2016-05-28] MEDS: PIPERACIL-TAZO 3.375 GM PREMIX 50 ML IV SCH ×2 (18:13→23:55)
[2016-05-28 20:00] VITALS: BP 129/55; PULSE 79; RESP 20; TEMP 99.4; O2SAT 97
[2016-05-28] MEDS: SODIUM CHLORIDE 0.9% FLUSH 5 ML FLUSH FLUSH SCH (21:00)
[2016-05-29] VITALS: BP 140/77; PULSE 75; RESP 20; TEMP 98.3; O2SAT 98
[2016-05-29 04:00] VITALS: BP 150/75; PULSE 82; RESP 20; TEMP 97.5; O2SAT 99
[2016-05-29] MEDS: PIPERACIL-TAZO 3.375 GM PREMIX 50 ML IV SCH ×3 (05:28→17:55)
[2016-05-29] MEDS: LEVOTHYROXINE SODIUM 50 MCG TAB PO SCH (05:28)
[2016-05-29 06:49] LABS: AUTOMATED NEUTROPHIL # 6.8 TH/MM3 (1.8-7.7); BASOPHIL % 0.2 % (0.0-2.0); EOSINOPHIL # 0.1 TH/MM3 (0-0.4); EOSINOPHIL % 1.8 % (0.0-4.0); HEMATOCRIT 36.2 % (35.0-46.0); LYMPH % 4.8 % (9.0-44.0); LYMPHOCYTE # 0.4 TH/MM3 (1.0-4.8); MEAN CELL VOLUME 91.1 FL (80.0-100.0); MEAN CORPUSCULAR HEMOGLOBIN 30.7 PG (27.0-34.0); MEAN CORPUSCULAR HGB CONC 33.8 % (32.0-36.0); MONO % 5.3 % (0.0-8.0); NEUT % 87.9 % (16.0-70.0); PLATELET COUNT 130 TH/MM3 (150-450); RED BLOOD COUNT 3.98 MIL/MM3 (4.00-5.30); WHITE BLOOD COUNT 7.7 TH/MM3 (4.0-11.0)
[2016-05-29 06:52] LABS: CHLORIDE 106 MEQ/L (98-107); SODIUM (NA) 142 MEQ/L (136-145)
[2016-05-29 06:53] LABS: HEMO FLAGS AUTO DIFF
[2016-05-29 06:56] LABS: ANION GAP 11 MEQ/L (5-15); BICARBONATE 25.2 MEQ/L (21.0-32.0)
[2016-05-29 06:57] LABS: BLOOD UREA NITROGEN 15 MG/DL (7-18)
[2016-05-29 06:59] LABS: ALT (GPT) 73 U/L (10-53); AST (GOT) 48 U/L (15-37)
[2016-05-29 07:00] LABS: GLOMERULAR FILTRATION RATE 69 ML/MIN (>89)
[2016-05-29 07:01] LABS: TOTAL BILIRUBIN ADULT 3.8 MG/DL (0.2-1.0)
[2016-05-29 07:02] LABS: ALKALINE PHOSPHATASE 272 U/L (45-117)
[2016-05-29 07:19] LABS: SCAN/DIFF AUTO DIFF CONFIRMED
[2016-05-29 08:00] VITALS: BP 133/80; PULSE 81; RESP 18; TEMP 98; O2SAT 96
[2016-05-29] MEDS ORDERED: HYDROCHLOROTHIAZIDE 25 MG TAB PO SCH (09:00)
[2016-05-29] MEDS: SODIUM CHLORIDE 0.9% FLUSH 5 ML FLUSH FLUSH SCH ×2 (09:00→20:33)
[2016-05-29] MEDS: SODIUM CHLOR 0.9% 1000 ML INJ 1,000 ML IV SCH (09:26)
[2016-05-29] MEDS: PANTOPRAZOLE SOD 40 MG DELAYED RELEASE TAB PO SCH (09:26)
--- NOTE | 2016-05-29 11:50 | HHI.PR ---
Subjective Remarks Patient seen and examined today with Dr. Bazan. Patient has been afebrile. Patient states that she has some upper respiratory phlegm and cough. Objective Vitals Vital Signs Date Time Temp Pulse Resp B/P Pulse Ox O2 Delivery O2 Flow Rate FiO2 05/29/16 08:00 98.0 81 18 133/80 96 05/29/16 04:00 97.5 82 20 150/75 99 05/29/16 00:00 98.3 75 20 140/77 98 05/28/16 20:00 99.4 79 20 129/55 97 05/28/16 20:00 99.4 79 20 129/55 97 05/28/16 17:38 76 16 143/75 96 Room Air 05/28/16 15:32 69 16 134/67 98 Room Air 05/28/16 12:44 72 16 110/50 98 Room Air I/O 05/28/16 05/28/16 05/28/16 05/29/16 05/29/16 05/29/16 07:00 15:00 23:00 07:00 15:00 23:00 Intake Total 550 ml 240 ml 60 ml Balance 550 ml 240 ml 60 ml Intake Oral 240 ml 60 ml IV Total 550 ml # Voids 2 1 # Bowel Movements 0 0 Result Diagram: 05/29/1661405/29/1615 Objective Remarks GENERAL: Well-developed, well-nourished, in no acute distress. alert and orientated HEENT: Head is normocephalic without any lesions or masses noted. Facial features are symmetric. Eyes: Extraocular muscles are intact. Conjunctivae were clear. NECK: Supple without any masses. Trachea midline no deviation. No JVD, CARDIAC: Regular rhythm, regular rate. S1/S2 are heard. No murmurs gallops or rubs. LUNGS: Clear to auscultation bilaterally. No wheeze, rhonchi or rales. No use of accessory muscles on inspiration or expiration. ABDOMEN: Soft, nontender. Nondistended. Bowel sounds heard in all 4 quadrants. No organomegaly or masses. Negative rebound, negative guarding EXTREMITIES: Mild nonpitting edema noted in bilateral ankles, pulses are equal bilaterally. No cyanosis or clubbing NEUROLOGY: Mood and affect appear appropriate. Cranial nerves II through XII grossly intact. Moving all extremities, speech is clear Urinary Catheter: No Vascular Central Line Catheter: No A/P Assessment and Plan Gram-negative edin bacteremia and sepsis, unclear source but must be GI in etiology _discussed with ID/Dr. Alvarez continue Zosyn IV. urine culture: NGTD Abdominal CT scan was negative. Initial lactate was 2.2 but repeat is 1.1. will HLIV -She does have an infusaport as well. -Will contact her GI tomorrow Dr. Arana to find out when most recent EGD/ colonoscopy was Anxiety cont BuSpar only when necessary Hiatal hernia continue Protonix. 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 Transaminitis and elevation of bilirubin being followed by Dr. Kidd. Status post liver biopsy day of admission Hypothyroidism Synthroid DVT prophylaxis Sequential compression devices. Written by Sivakumar Wallace PA-C, acting as scribe for Dr. Bazan on 05/29/16 at 17:00 The documentation accurately reflects the work and decisions performed face-to- face by Dr. Bazan on 05/29/16 at 17:00. Sivakumar Wallace May 29, 2016 11:50 Isaura Bazan MD May 29, 2016 18:41
[2016-05-29 12:00] VITALS: BP 157/85; PULSE 82; RESP 18; TEMP 98; O2SAT 97
[2016-05-29] MEDS ORDERED: POTASSIUM CHLORIDE 20 MEQ CONTROLLED RELEASE TAB PO ONE (12:00)
[2016-05-29] MEDS ORDERED: PROMETHAZINE PO PRN (12:00)
[2016-05-29] MEDS ORDERED: [UNRECOGNIZED DRUG - OTHER] PO PRN (12:00)
[2016-05-29] MEDS: guaiFENesin E.R. 600 MG TAB PO SCH ×2 (12:24→20:33)
[2016-05-29] MEDS: DOCUSATE SODIUM 100 MG CAP PO SCH ×2 (12:24→12:35)
--- NOTE | 2016-05-29 12:45 | PD.ID.CON ---
History of Present Illness Service ID Consult Requested By Reason for Consult Evaluation and Mment of Gram negative bacteremia. Primary Care Physician Serge Calvo MD Diagnoses: History of Present Illness is an 80 y/o CF with PMHx of low-grade B-cell lymphoma followed by Dr. Burciaga who recently started seeing him after her doctors were switched reportedly. She reports she also sees her GI doctor. On routine blood work her liver function tests were abnormal and she reports initially it was thought to be due to her statins which are now on hold. Despite holding her statins the LFTs continued to be high so she was referred for a liver biopsy by her stucco laborer. She underwent this procedure a day at [facility] a day prior to her ED visit at [facility]. After the procedure she started having chills and continued into the evening along with a fever of 103 and so she presented to the ER last night. She also has complained of a cough productive of clear sputum over the past 4-5 days however that has been improving and she has not had any shortness of breath. Blood cultures were taken last night in the ER but as the patient seemed to be feeling better she was diagnosed with a virus infection and sent home. When the blood cultures are growing gram-negative rods in 2 sets. She was called by the ER and referred back in for further evaluation. ID is consulted for evaluation and M'ment of gram negative bacteremia. Pertinent positives and negatives: Patient reports she had upper abdominal pain, nausea and vomiting and this was determined to be secondary to hiatal hernia. This resolved 2 weeks back. Doesn't denies any dysuria. She has had a cholecystectomy in the past. She denies any in on any antibiotics recently. Denies prior port infections. Reports last colonoscopy was ok. EGD with multiple issues per patient. Reports large hiatal hernia. Review of Systems Constitutional: COMPLAINS OF: Fever, Chills, DENIES: Diaphoretic episodes, Fatigue, Weight gain, Weight loss, Dizziness, Change in appetite, Night Sweats Endocrine: DENIES: Abnorml menstrual pattern, Heat/cold intolerance, Polydipsia , Polyuria, Polyphagia Eyes: DENIES: Blurred vision, Diplopia, Eye inflammation, Eye pain, Vision loss , Photosensitivity, Double Vision Ears, nose, mouth, throat: DENIES: Tinnitus, Hearing loss, Vertigo, Nasal discharge, Oral lesions, Throat pain, Hoarseness, Ear Pain, Running Nose, Epistaxis, Sinus Pain, Toothache, Odynophagia Respiratory: DENIES: Apneas, Cough, Snoring, Wheezing, Hemoptysis, Sputum production, Shortness of breath Cardiovascular: DENIES: Chest pain, Palpitations, Syncope, Dyspnea on Exertion , PND, Lower Extremity Edema, Orthopnea, Claudication Gastrointestinal: COMPLAINS OF: Abdominal pain, DENIES: Black stools, Bloody stools, Constipation, Diarrhea, Nausea, Vomiting, Difficulty Swallowing, Anorexia Genitourinary: DENIES: Abnormal vaginal bleeding, Dysmenorrhea, Dyspareunia, Sexual dysfunction, Urinary frequency, Urinary incontinence, Urgency, Hematuria , Dysuria, Nocturia, Vaginal discharge Musculoskeletal: DENIES: Joint pain, Muscle aches, Stiffness, Joint Swelling, Back pain, Neck pain Integumentary: DENIES: Abnormal pigmentation, Pruritus, Rash, Nail changes, Breast masses, Breast skin changes, Nipple discharge Hematologic/lymphatic: DENIES: Bruising, Lymphadenopathy Immunologic/allergic: DENIES: Eczema, Urticaria Neurologic: DENIES: Abnormal gait, Headache, Localized weakness, Paresthesias, Seizures, Speech Problems, Tremor, Poor Balance Psychiatric: DENIES: Anxiety, Confusion, Mood changes, Depression, Hallucinations, Agitation, Suicidal Ideation, Homicidal Ideation, Delusions Except as stated in HPI: all other systems reviewed are Neg Past Family Social History Allergies: Coded Allergies: No Known Allergies (Verified , 05/28/16) Past Medical History Anxiety for which she takes BuSpar own when necessary Hiatal hernia 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, stopped en route to extend this past March has history of 3 relapses in the past Hypertension Transaminitis and elevation of bilirubin Hyperlipidemia Hypothyroidism Obesity Past Surgical History Cholecystectomy Hysterectomy Liver biopsy and intra-abdominal biopsy Reported Medications Reported Meds & Active Scripts Active Reported Buspirone (Buspirone HCl) 5 Mg Tab 5 Mg PO BID PRN Potassium 99 Mg Tab 1 Tab PO DAILY Omeprazole 40 Mg Cap 40 Mg PO DAILY Hydrochlorothiazide 25 Mg Tab 25 Mg PO DAILY Vitamin D3 (Cholecalciferol) 5,000 Unit Chew 5,000 Units CHEW DAILY Levothyroxine (Levothyroxine Sodium) 50 Mcg Tab 50 Mcg PO DAILY Active Ordered Medications Current Medications Medications (Trade) Dose Ordered Sig/Cha Route Start Time Stop Time Status Last Admin (Zosyn 3.375 Gm Premix) 50 ml @ 100 mls/hr Q6H IV 05/28/16 18:00 05/29/16 12:24 (NS Flush) 2 ml UNSCH PRN FLUSH 05/28/16 13:45 (NS Flush) 2 ml BID FLUSH 05/28/16 21:00 (Tylenol) 650 mg Q4H PRN PO 05/28/16 13:45 (Zofran Inj) 4 mg Q6H PRN IVP 05/28/16 13:45 (Colace) 100 mg Q12H PO 05/28/16 13:45 05/28/16 23:55 (Milk Of Magnesia Liq) 30 ml Q12H PRN PO 05/28/16 13:45 (Narcan Inj) 0.4 mg UNSCH PRN IV 05/28/16 13:45 (Buspar) 5 mg BID PRN PO 05/28/16 13:45 (Synthroid) 50 mcg DAILY@06 PO 05/29/16 06:00 05/29/16 05:28 (Protonix) 40 mg DAILY PO 05/29/16 09:00 05/29/16 09:26 (Mucinex Er) 600 mg BID PO 05/29/16 12:00 05/29/16 12:24 (Phenergan Dm Liq) 5 ml Q6H PRN PO 05/29/16 12:00 Family History reviewed and NC to current illness. Social History denies alcohol, smoking, drugs. Physical Exam Vital Signs Vital Signs Date Time Temp Pulse Resp B/P Pulse Ox O2 Delivery O2 Flow Rate FiO2 05/29/16 08:00 98.0 81 18 133/80 96 05/29/16 04:00 97.5 82 20 150/75 99 05/29/16 00:00 98.3 75 20 140/77 98 05/28/16 20:00 99.4 79 20 129/55 97 05/28/16 20:00 99.4 79 20 129/55 97 05/28/16 17:38 76 16 143/75 96 Room Air 05/28/16 15:32 69 16 134/67 98 Room Air Physical Exam GENERAL: Obese CF patient, in no apparent distress. SKIN: No rashes. HEAD: Atraumatic. Normocephalic. No temporal or scalp tenderness. EYES: Pupils equal round and reactive. Extraocular motions intact. No scleral icterus. No injection or drainage. ENT: Nose without bleeding, purulent drainage or septal hematoma. Throat without erythema, tonsillar hypertrophy or exudate. Uvula midline. Airway patent. NECK: Trachea midline. Supple, nontender, no meningeal signs. Large neck. CARDIOVASCULAR: HS audible, No murmur appreciated. RESPIRATORY: Clear to auscultation. Breath sounds equal bilaterally. No wheezes , rales, or rhonchi. GASTROINTESTINAL: Abdomen soft, non-tender, nondistended. MUSCULOSKELETAL: Extremities without clubbing, cyanosis. trace pedal edema. No joint tenderness, effusion, or edema noted. No calf tenderness. Negative Homans sign bilaterally. NEUROLOGICAL: Awake and alert. Grossly non focal Psych cooperative IV line sites with no e/o infection. Port site with no e/o infection. Laboratory Laboratory Tests Test 05/28/16 05/28/16 05/28/16 05/28/16 13:25 13:58 15:15 16:30 Lactic Acid Level 2.2 1.1 Hepatitis A IgM Antibody NEGATIVE Hepatitis B Surface Antigen NEGATIVE Hepatitis B Core IgM Antibody NEGATIVE Hepatitis C Antibody NEGATIVE Urine Collection Type CLEAN CATCH Urine Color YELLOW Urine Turbidity CLEAR Urine pH 5.5 Urine Specific [place] GREATER THAN 1.035 Urine Protein NEG Urine Glucose (UA) NEG Urine Ketones TRACE Urine Occult Blood TRACE Urine Nitrite NEG Urine Bilirubin SMALL Urine Leukocyte Esterase NEG Urine WBC 0-2 Urine Squamous Epithelial 0-5 Cells Test 05/29/16 06:15 White Blood Count 7.7 Red Blood Count 3.98 Hemoglobin 12.2 Hematocrit 36.2 Mean Corpuscular Volume 91.1 Mean Corpuscular Hemoglobin 30.7 Mean Corpuscular Hemoglobin 33.8 Concent Red Cell Distribution Width 13.0 Platelet Count 130 Mean Platelet Volume 8.6 Neutrophils (%) (Auto) 87.9 Lymphocytes (%) (Auto) 4.8 Monocytes (%) (Auto) 5.3 Eosinophils (%) (Auto) 1.8 Basophils (%) (Auto) 0.2 Neutrophils # (Auto) 6.8 Lymphocytes # (Auto) 0.4 Monocytes # (Auto) 0.4 Eosinophils # (Auto) 0.1 Basophils # (Auto) 0.0 CBC Comment AUTO DIFF Differential Comment AUTO DIFF CONFIRMED Sodium Level 142 Potassium Level 3.0 Chloride Level 106 Carbon Dioxide Level 25.2 Anion Gap 11 Blood Urea Nitrogen 15 Creatinine 0.80 Estimat Glomerular Filtration 69 Rate Random Glucose 85 Calcium Level 8.1 Total Bilirubin 3.8 Aspartate Amino Transf 48 (AST/SGOT) Alanine Aminotransferase 73 (ALT/SGPT) Alkaline Phosphatase 272 Total Protein 5.3 Albumin 2.7 Date/Time Procedure Status Source Growth 05/28/16 15:15 Urine Culture Received Urine Clean Catch Pending 05/28/16 11:30 Aerobic Blood Culture - Preliminary Resulted Blood Peripheral NO GROWTH IN 1 DAY 05/28/16 11:30 Anaerobic Blood Culture - Preliminary Resulted Blood Peripheral NO GROWTH IN 1 DAY Result Diagram: 05/29/16 0615 05/29/16 0615 Imaging Last Impressions Chest X-Ray 05/28/16 0000 Signed Impressions: Service Date/Time: Saturday, May 28, 2016 12:22 - CONCLUSION: 1. No acute cardiopulmonary disease. 2. Moderate size retrocardiac hiatal hernia. Andry Tony MD Abdomen/Pelvis CT 05/28/16 0000 Signed Impressions: Service Date/Time: Saturday, May 28, 2016 13:32 - CONCLUSION: 1. Large hiatal hernia. 2. The patient is post cholecystectomy. 3. There are degenerative changes of the spine. 4. No findings to indicate intra-abdominal abscess identified. Brian Watts MD Assessment and Plan Assessment and Plan Detailed note to follow Sepsis present on admission E.coli bacteremia recent liver biopsy Port cath in place. Lymphoma on chemo. Immune compromised host. Abnormal LFTs: GALARZA, cancer related, ? meds was on Statins. Of note patient has had abnormal liver function off and on few years back as well. Recs Port blood culture Peripheral blood culture with Port culture to assist in deciding if port the source. Continue Zosyn IV for now Follow cultures Follow clinically No hepatotoxic agents (would not recommend Ceftriaxone for this patient due to abnormal LFTs) If persistent bacteremia will assess need for endovascular workup. Seble Alvarez MD May 29, 2016 12:45
[2016-05-29 16:00] VITALS: BP 134/81; PULSE 79; RESP 18; TEMP 98; O2SAT 96
[2016-05-29] MEDS ORDERED: Infusaport/Implanted VAD PRN NS Lock Flush IVF (17:45)
[2016-05-29 20:00] VITALS: BP 168/88; PULSE 87; RESP 20; TEMP 98.2; O2SAT 96
[2016-05-30] VITALS: BP 151/85; PULSE 73; RESP 20; TEMP 96.7; O2SAT 97
[2016-05-30] MEDS: PIPERACIL-TAZO 3.375 GM PREMIX 50 ML IV SCH ×4 (00:28→17:01)
[2016-05-30] MEDS: SODIUM CHLORIDE 0.9% FLUSH 5 ML FLUSH FLUSH PRN ×2 (00:28→06:03)
[2016-05-30] MEDS: DOCUSATE SODIUM 100 MG CAP PO SCH ×2 (00:33→12:46)
[2016-05-30 04:00] VITALS: BP 156/96; PULSE 70; RESP 20; TEMP 96.8; O2SAT 96
[2016-05-30] MEDS: LEVOTHYROXINE SODIUM 50 MCG TAB PO SCH (06:02)
[2016-05-30 06:25] LABS: AUTOMATED NEUTROPHIL # 3.1 TH/MM3 (1.8-7.7); BASOPHIL % 0.6 % (0.0-2.0); EOSINOPHIL # 0.2 TH/MM3 (0-0.4); HEMO FLAGS DIFF FINAL; LYMPH % 13.9 % (9.0-44.0); LYMPHOCYTE # 0.6 TH/MM3 (1.0-4.8); MEAN CELL VOLUME 90.5 FL (80.0-100.0); MEAN CORPUSCULAR HEMOGLOBIN 29.9 PG (27.0-34.0); MONO % 9.4 % (0.0-8.0); NEUT % 72.1 % (16.0-70.0); PLATELET COUNT 137 TH/MM3 (150-450); RED BLOOD COUNT 3.76 MIL/MM3 (4.00-5.30); RED CELL DISTRIBUTION WIDTH 13.5 % (11.6-17.2); WHITE BLOOD COUNT 4.3 TH/MM3 (4.0-11.0)
[2016-05-30 06:36] LABS: POTASSIUM 3.2 MEQ/L (3.5-5.1)
[2016-05-30 06:41] LABS: MAGNESIUM 1.8 MG/DL (1.5-2.5)
[2016-05-30 08:00] VITALS: BP 143/74; PULSE 65; RESP 18; TEMP 97.4; O2SAT 98
[2016-05-30] MEDS: guaiFENesin E.R. 600 MG TAB PO SCH ×2 (08:08→20:44)
[2016-05-30] MEDS: PANTOPRAZOLE SOD 40 MG DELAYED RELEASE TAB PO SCH (08:08)
[2016-05-30] MEDS: SODIUM CHLORIDE 0.9% FLUSH 5 ML FLUSH FLUSH SCH ×2 (08:09→20:49)
[2016-05-30 12:00] VITALS: BP 148/88; PULSE 69; RESP 18; TEMP 98; O2SAT 97
--- NOTE | 2016-05-30 15:37 | HHI.PR ---
Subjective Remarks Late entry. Patient was seen at 145. She is doing well. Denies fevers or chills. Objective Vitals Vital Signs Date Time Temp Pulse Resp B/P Pulse Ox O2 Delivery O2 Flow Rate FiO2 05/30/16 12:00 98.0 69 18 148/88 97 05/30/16 08:00 97.4 65 18 143/74 98 05/30/16 04:00 96.8 70 20 156/96 96 05/30/16 00:00 96.7 73 20 151/85 97 Manual Cuff/Auscultation 05/29/16 20:00 98.2 87 20 168/88 96 Automatic Cuff 05/29/16 16:00 98.0 79 18 134/81 96 I/O 05/29/16 05/29/16 05/29/16 05/30/16 05/30/16 05/30/16 07:00 15:00 23:00 07:00 15:00 23:00 Intake Total 60 ml 750 ml 890 ml 240 ml 480 ml Balance 60 ml 750 ml 890 ml 240 ml 480 ml Intake Oral 60 ml 750 ml 240 ml 240 ml 480 ml IV Total 650 ml # Voids 1 2 2 3 3 # Bowel Movements 0 0 2 0 Result Diagram: 05/30/1625 05/30/16 05 Objective Remarks GENERAL: Well-nourished, well-developed obese female patient. SKIN: Warm and dry. HEAD: Normocephalic. EYES: No scleral icterus. No injection or drainage. NECK: Supple, trachea midline. No JVD or lymphadenopathy. CARDIOVASCULAR: Regular rate and rhythm without murmurs, gallops, or rubs. RESPIRATORY: Breath sounds equal and clear to auscultation bilaterally. No accessory muscle use. GASTROINTESTINAL: Abdomen soft, non-tender, nondistended. EXTREMITIES: No cyanosis, or edema. NEUROLOGICAL: Awake, alert, and oriented x 3. Non-focal. 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 S/p transcutaneous liver biopsy on 05/28 (for eval of LFTs). -Blood cultures from 05/27 growing Escherichia coli pansensitive in both sets, and Klebsiella pneumoniae in one tube pansensitive as well. -ID following/Dr. Alvarez -Patient also has an [id number]. Repeat blood cultures from the and are negative to date. -I discussed the patient with Dr. Arana today. She underwent an endoscopy in March 2016 showing a sliding and paraesophageal hiatal hernia which is recommended to undergo repair, also diverticulosis in the duodenum, and Santos' s esophagus. Last colonoscopy was July 2015 showing diverticulosis. Patient was getting left upper quadrant abdominal pain over a month ago which has now resolved. A recent MRA of the abdomen obtained as outpatient was negative for any stenosis of blood vessel. Liver biopsy was done for eval of elevated LFTs. continue Zosyn IV/ antibiotics per ID. Mandatory urine culture: NGTD Abdominal CT scan was negative on admission. Anxiety cont BuSpar only when necessary Hiatal hernia continue Protonix. F/u with Dr. Arana and surgery asd outpatient. 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 Kidd. Status post liver biopsy day of admission Hypothyroidism Synthroid DVT prophylaxis Sequential compression devices. Written by Sivakumar Wallace PA-C, acting as scribe for Dr. Bazan on 05/29/16 at 17:00 The documentation accurately reflects the work and decisions performed face-to- face by Dr. Bazan on 05/29/16 at 17:00. Isaura Bazan MD May 30, 2016 15:37
[2016-05-30] MEDS ORDERED: POTASSIUM CHLORIDE 10 MEQ CONTROLLED RELEASE TAB PO ONE (15:45)
[2016-05-30] MEDS: HYDROCHLOROTHIAZIDE 25 MG TAB PO SCH (16:12)
[2016-05-30 20:00] VITALS: BP 156/98; PULSE 62; RESP 20; TEMP 96.2; O2SAT 98
[2016-05-30] MEDS: BENZONATATE 100 MG CAP PO PRN (20:46)
[2016-05-31] VITALS: BP 172/78; PULSE 75; RESP 20; TEMP 96.3; O2SAT 95
[2016-05-31] MEDS: PIPERACIL-TAZO 3.375 GM PREMIX 50 ML IV SCH ×3 (00:45→11:45)
[2016-05-31] MEDS: DOCUSATE SODIUM 100 MG CAP PO SCH ×2 (00:49→11:45)
[2016-05-31 04:00] VITALS: BP 160/85; PULSE 69; RESP 20; TEMP 96.2; O2SAT 94
[2016-05-31] MEDS: LEVOTHYROXINE SODIUM 50 MCG TAB PO SCH (05:54)
[2016-05-31] MEDS: BENZONATATE 100 MG CAP PO PRN (06:49)
[2016-05-31] MEDS: guaiFENesin E.R. 600 MG TAB PO SCH (07:49)
[2016-05-31] MEDS: PANTOPRAZOLE SOD 40 MG DELAYED RELEASE TAB PO SCH (07:49)
[2016-05-31] MEDS: HYDROCHLOROTHIAZIDE 25 MG TAB PO SCH (07:50)
[2016-05-31] MEDS: SODIUM CHLORIDE 0.9% FLUSH 5 ML FLUSH FLUSH SCH (07:50)
[2016-05-31 08:00] VITALS: BP 147/80; PULSE 66; RESP 20; TEMP 96.8; O2SAT 95
[2016-05-31] MEDS ORDERED: cloNIDine HCL 0.1 MG TAB PO PRN (08:30)
[2016-05-31 12:00] VITALS: BP 149/89; PULSE 64; RESP 20; TEMP 96.6; O2SAT 96
[2016-05-31] MEDS ORDERED: LEVA750T PO (14:00)
--- NOTE | 2016-05-31 14:16 | HHI.DS ---
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 Burciaga, and recently has had liver enzyme elevation. She was referred for a liver biopsy by her [employer] Dr. Gonzales. She underwent this procedure yesterday at [facility]. After the procedure she started to have shaking chills. These chills continued into the evening along with a fever of 103 and so she presented to the ER. She also has complained of a cough productive of clear sputum over the past 4-5 days however that has been improving and she has not had any shortness of breath. Blood cultures were taken last night in the ER but as the patient seemed to be feeling better she was diagnosed with a virus infection and sent home. Today the blood cultures are growing gram-negative rods in 2 sets. She was called by the ER and referred back in for further evaluation. The patient denies any nausea vomiting abdominal pain. Denies any dysuria. She has had a cholecystectomy in the past. She denies any in on any antibiotics recently. Denies previous history of sepsis. Of note about a month ago she was having some left-sided sharp abdominal pain and occasional morning emesis for which she was seeing Dr. Arana but this has resolved. CBC/BMP: 05/30/16 0525 05/31/16 0655 Significant Findings Laboratory Tests Test 05/28/16 05/29/16 05/29/16 05/30/16 15:15 06:15 14:10 05:25 Urine Specific [place] GREATER THAN 1.035 (1.002-1.035) Urine Ketones TRACE mg/dL (NEG) Urine Occult Blood TRACE (NEG) Urine Bilirubin SMALL (NEG) Red Blood Count 3.98 MIL/MM3 3.76 MIL/MM3 (4.00-5.30) (4.00-5.30) Platelet Count 130 TH/MM3 137 TH/MM3 (150-450) (150-450) Neutrophils (%) (Auto) 87.9 % 72.1 % (16.0-70.0) (16.0-70.0) Lymphocytes (%) (Auto) 4.8 % (9.0-44.0) Lymphocytes # (Auto) 0.4 TH/MM3 0.6 TH/MM3 (1.0-4.8) (1.0-4.8) Potassium Level 3.0 MEQ/L 3.2 MEQ/L (3.5-5.1) (3.5-5.1) Estimat Glomerular Filtration 69 ML/MIN (>89) Rate Calcium Level 8.1 MG/DL 8.2 MG/DL (8.5-10.1) (8.5-10.1) Total Bilirubin 3.8 MG/DL (0.2-1.0) Aspartate Amino Transf 48 U/L (15-37) (AST/SGOT) Alanine Aminotransferase 73 U/L (10-53) (ALT/SGPT) Alkaline Phosphatase 272 U/L (45-117) Total Protein 5.3 GM/DL (6.4-8.2) Albumin 2.7 GM/DL (3.4-5.0) C-Reactive Protein 8.90 MG/DL (0.00-0.30) Hemoglobin 11.2 GM/DL (11.6-15.3) Hematocrit 34.0 % (35.0-46.0) Monocytes (%) (Auto) 9.4 % (0.0-8.0) Chloride Level 108 MEQ/L (98-107) Imaging Last Impressions Chest X-Ray 05/28/16 0000 Signed Impressions: Service Date/Time: Saturday, May 28, 2016 12:22 - CONCLUSION: 1. No acute cardiopulmonary disease. 2. Moderate size retrocardiac hiatal hernia. Andry Tony MD Abdomen/Pelvis CT 05/28/16 0000 Signed Impressions: Service Date/Time: Saturday, May 28, 2016 13:32 - CONCLUSION: 1. Large hiatal hernia. 2. The patient is post cholecystectomy. 3. There are degenerative changes of the spine. 4. No findings to indicate intra-abdominal abscess identified. Brian Watts MD PE at Discharge GENERAL: Well-nourished, well-developed obese female patient. SKIN: Warm and dry. HEAD: Normocephalic. EYES: No scleral icterus. No injection or drainage. NECK: Supple, trachea midline. No JVD or lymphadenopathy. CARDIOVASCULAR: Regular rate and rhythm without murmurs, gallops, or rubs. RESPIRATORY: Breath sounds equal and clear to auscultation bilaterally. No accessory muscle use. GASTROINTESTINAL: Abdomen soft, non-tender, nondistended. EXTREMITIES: No cyanosis, or edema. NEUROLOGICAL: Awake, alert, and oriented x 3. Non-focal. Hospital Course The patient was admitted to the hospital. She remained stable. She was placed on Zosyn IV. The initial blood cultures grew out Escherichia coli and Klebsiella pneumoniae both pansensitive. Repeat blood cultures were negative for 72 hours. The patient has remained stable and afebrile. Abdominal CT scan was negative. The patient does have diverticulosis of the large intestine based on a colonoscopy 1 year ago. Per infectious disease the etiology of the Escherichia coli in the bloodstream may have been from the diverticulosis. It is doubtful that the liver biopsy was the etiology. Because her repeat blood cultures were negative the port was not considered to be the etiology. It is recommended by infectious disease that she can continue on Levaquin to complete 14 days total of antibiotic therapy from the negative blood culture on May 28. After she has been off the antibiotics for several days she is to get her blood drawn for repeat blood culture to ensure this has been cleared. I did discuss this in detail with the patient, Dr. Alvarez, as well as her GI specialist Dr. Arana. I have provided the patient with the prescription to get the blood culture and have cc to her primary care physician Dr. Brad Calvo to get this result. The patient will be discharged home today. She has been educated that she should return to the ER for any shaking chills or fever. Pt Condition on Discharge: Stable Discharge Disposition: Discharge Home Discharge Time: > 30 minutes Discharge Instructions DIET: Follow Instructions for: Heart Healthy Diet Activities you can perform: Regular-No Restrictions Follow up Referrals: PCP Follow-up - 2 Weeks with Serge Calvo MD New Medications: Levofloxacin (Levaquin) 750 Mg Tab 750 MG PO DAILY Infection #11 Ref 0 TAB Continued Medications: Buspirone (Buspirone) 5 Mg Tab 5 MG PO BID PRN ANXIETY Ref 0 TAB Cholecalciferol (Vitamin D3) 5,000 Unit Chew 5000 UNITS CHEW DAILY Nutritional Supplement #1 Ref 0 BOTTLE Hydrochlorothiazide (Hydrochlorothiazide) 25 Mg Tab 25 MG PO DAILY #30 Ref 0 TAB Levothyroxine (Levothyroxine) 50 Mcg Tab 50 MCG PO DAILY Thyroid #30 Ref 0 TAB Omeprazole (Omeprazole) 40 Mg Cap 40 MG PO DAILY #30 Ref 0 CAP Potassium (Potassium) 99 Mg Tab 1 TAB PO DAILY Isaura Bazan MD May 31, 2016 14:16
== END 2016-05-31 15:35 | disposition home or self-care (01) | DRG 872 ==
LOC: PHED 10:58 → PHEDA 13:42 → PH3B 18:19
PROVIDERS: ADMIT Family Medicine; ATTEND Family Medicine
DX: A41.51 Sepsis due to Escherichia coli [E. coli] (principal); C82.00 Follicular lymphoma grade I, unspecified site; K22.70 Barrett's esophagus without dysplasia; A41.59 Other Gram-negative sepsis; K57.50 Diverticulosis of both small and large intestine without perforation or abscess without bleeding; K44.9 Diaphragmatic hernia without obstruction or gangrene; F41.9 Anxiety disorder, unspecified; I10 Essential (primary) hypertension; E78.5 Hyperlipidemia, unspecified; E03.9 Hypothyroidism, unspecified; E66.9 Obesity, unspecified; R74.8 Abnormal levels of other serum enzymes; Z68.38 Body mass index [BMI] 38.0-38.9, adult
CPT/HCPCS: 71010; 71020; 74177; 80048; 80053; 80074; 80076; 81001; 83605; 83615; 83735; 84132; 85007; 85025; 85027; 85610; 85652; 85730; 86140; 87040; 87077; 87086; 87186; 87205; 87804; 96361; 96365; J0713; J1642; J2543; J7030; J7040; Q9967

== ENCOUNTER 2017-04-24 05:47 | Inpatient (IN) | payer OTHER, MEDICARE ==
[~2017-04-24] VITALS: Ht 154.9 cm; Wt 89.2 kg
[~2017-04-24 05:47] MED LIST changes: -POTA99TA PO; +VITA3000 PO; -VITA500030 CHEW
[2017-04-24] MEDS ORDERED: CHLORHEXIDINE GLUCONATE 2 % 1 PACK (2 CLOTHS) TOPICAL PRN (06:45)
[2017-04-24] MEDS ORDERED: SODIUM CHLORID 0.9% 500 ML IV PRN (06:45)
[2017-04-24] MEDS ORDERED: POVIDONE IODINE 5% (ANTISEPSIS KIT) 4 APPLICATIONS EACH NARE PRN (06:45)
[2017-04-24] MEDS ORDERED: LACTATED RINGER'S 1000 ML IV PRN (06:45)
[2017-04-24] MEDS ORDERED: METOPROLOL TARTRATE 25 MG TAB PO PRN (06:45)
[2017-04-24] MEDS ORDERED: ceFAZolin 2 GM PREMIX 50 ML IV SCH (06:45)
[2017-04-24] MEDS ORDERED: SODIUM CHLORIDE 0.9% FLUSH 10 ML FLUSH IV FLUSH PRN ×3 (07:00)
[2017-04-24] MEDS ORDERED: ACETAMINOPHEN 1000 MG/100 ML 0 ML IV ONE (07:07)
[2017-04-24 07:11] LABS: AUTOMATED NEUTROPHIL # 3.3 TH/MM3 (1.8-7.7); BASOPHIL % 0.7 % (0.0-2.0); EOSINOPHIL # 0.2 TH/MM3 (0-0.4); EOSINOPHIL % 4.6 % (0.0-4.0); HEMATOCRIT 41.5 % (35.0-46.0); HEMOGLOBIN 14.4 GM/DL (11.6-15.3); LYMPH % 17.2 % (9.0-44.0); LYMPHOCYTE # 0.8 TH/MM3 (1.0-4.8); MEAN CELL VOLUME 91.6 FL (80.0-100.0); MEAN CORPUSCULAR HEMOGLOBIN 31.8 PG (27.0-34.0); MEAN CORPUSCULAR HGB CONC 34.7 % (32.0-36.0); MONO % 9.3 % (0.0-8.0); MONOCYTE # 0.5 TH/MM3 (0-0.9); NEUT % 68.2 % (16.0-70.0); PLATELET COUNT 176 TH/MM3 (150-450); RED BLOOD COUNT 4.53 MIL/MM3 (4.00-5.30); RED CELL DISTRIBUTION WIDTH 13.7 % (11.6-17.2); WHITE BLOOD COUNT 4.9 TH/MM3 (4.0-11.0)
[2017-04-24] MEDS ORDERED: BUPIVACAINE/EPINEPHRINE 0.25% PF 10 ML VIAL INFIL ONE (08:36)
[2017-04-24] MEDS ORDERED: SUGAMMADEX SODIUM 200 MG/2 ML VIAL IV PUSH ONE (09:31)
[2017-04-24] MEDS ORDERED: ONDANSETRON HCL 4 MG/2 ML VIAL IV PUSH PRN (10:00)
[2017-04-24] MEDS ORDERED: ACETAMINOPHEN/HYDROcodone 325 MG/5 MG TAB PO PRN ×2 (10:00)
[2017-04-24] MEDS ORDERED: MORPHINE SULFATE 4 MG/ML INJ IV PUSH PRN (10:00)
[2017-04-24] MEDS ORDERED: NALOXONE HCL 0.4 MG/ML AMP IV PUSH PRN (10:00)
[2017-04-24] MEDS ORDERED: busPIRone HCL 5 MG TAB PO PRN (10:00)
[2017-04-24] MEDS ORDERED: diphenhydrAMINE HCL 25 MG CAP PO PRN (10:00)
[2017-04-24] MEDS ORDERED: DO NOT ADM ANY ANTICOAGULANT DRUGS PRN (10:04)
[2017-04-24] MEDS ORDERED: Post-op Orders (for Pharmacy) XX ONE (10:04)
[2017-04-24] MEDS: LACTATED RINGER'S 1000 ML INJ 1,000 ML IV SCH ×2 (10:15→22:30)
--- NOTE | 2017-04-24 13:21 | MP ---
cc: JESUS IRELAND M.D. DATE OF SURGERY 04/24/2017 PREOPERATIVE DIAGNOSES 1. Symptomatic large hiatal hernia. 2. History of gastroparesis and esophageal dysmotility. POSTOPERATIVE DIAGNOSES 1. Symptomatic large hiatal hernia. 2. History of gastroparesis and esophageal dysmotility. PROCEDURE PERFORMED Laparoscopic repair hiatal hernia with mesh ([place]-elana Bio-A) with partial fundoplication. SURGEON Jesus Ireland MD ROOFER ASSISTANT Garrett Chacon MD ANESTHESIA General endotracheal. COMPLICATIONS None. INDICATIONS FOR PROCEDURE Ms. Keller is a pleasant 81-year-old female who has had problems with regurgitation after eating solid foods. She has had a very extensive workup by GI. The patient has a known history of gastroparesis as well as some esophageal dysmotility. She had an upper GI that demonstrated a very large hiatal hernia. It was felt that the hiatal hernia was kinking and causing some of her regurgitation. She was referred for surgical evaluation. The risks and benefits of a hiatal hernia repair with partial fundoplication was discussed with her and her and they were agreeable. DETAILS The patient was identified, brought to the operating room and placed supine on the operating table. After adequate general endotracheal anesthesia was achieved the abdomen was prepped and draped in standard surgical fashion. 0.25% Marcaine was injected into the skin and subcutaneous tissue in the upper midline. Incision was made. Dissection was carried down in the subcutaneous tissue to the midline fascia. The midline fascia was then incised sharply. A finger was then placed in the peritoneal cavity without difficulty. Blunt balloon trocar was inserted and the abdomen was insufflated to 15 mmHg using CO2 gas. Next, four 5-mm trocars were placed across the upper abdomen under direct vision after anesthetizing the skin and subcutaneous tissue with 0.25% Marcaine. A Yun-Flex liver retractor was used to elevate the left lobe of the liver and the hiatal hernia was immediately visualized and photographed. Attention was first directed medially to the lesser curve. The gastrohepatic ligament was opened and the left right katarina was identified. The hernia sac was then identified and carefully dissected off of the right pleura. A small hole was made in the right pleura but the lung was seen to be well inflated. Once the hernia sac was completely dissected off on the patient's right side, attention was now directed to the left side. On the left side the short gastric vessels were taken down all the way up to the left esophageal katarina. Once this was clearly visualized the hernia sac was grasped and again divided out of the left chest using the harmonic scalpel. Care was taken to avoid the left pleura. Once we had mobilized both sides, a posterior window was then made behind the esophagus and the Yun-Flex retractor was placed in the esophagus and stomach were then pulled down. Next a 36-[place] bougie was then inserted into the esophagus, was seen going into the stomach. The diaphragmatic defect was photographed. Attention was now directed to repair. Repair was accomplished using the suture pathology assistant placing four 0 Ethibond sutures in the diaphragm. The diaphragm was under no significant tension when we closed it. The closure was then photographed. Next a piece of [place] BIO-A was brought into the operative field. All acute edges were cut off of the mesh. The mesh was then inserted and placed around behind the esophagus and brought up over top of it. The mesh was then secured again using Ethibond sutures at the 10 o'clock and 7 o'clock position using mesh to the diaphragm, back to mesh suture technique. With this the defect was well covered. Next a partial fundoplication was accomplished. Reaching behind the esophagus the stomach was grasped and brought under. It was then sewn to the 10 o'clock position of the mesh and the 7 o'clock position of the mesh. The stomach was under no tension and easily passed behind the esophagus. Once we did this the bougie was then removed. BioGlue was then used to secure the mesh to the diaphragm superiorly and laterally on both sides. The mesh was photographed in place. The stomach and hernia sac were under no tension and did not try to go back up of into the chest at any point during our procedure. Final repair was photographed. 0.25% Marcaine was then injected into the operative space. Valsalva maneuver was then used and the abdomen desufflated. The midline fascia was repaired with a 0 Vicryl in [id number] fashion. The skin was closed with 4-0 Vicryl. The patient tolerated the procedure well, was awakened and brought to recovery in stable condition. Jesus MD Krish MW/YAQUELIN /10:00 AM /12:59 PM MTDJuan Manuel
[2017-04-24] MEDS: PCA - TOTAL MG MORPHINE DELIVERED PER SHIFT SCH ×2 (14:00→22:00)
[2017-04-24 20:00] VITALS: BP 133/70; PULSE 79; RESP 17; TEMP 97.5; O2SAT 93
--- NOTE | 2017-04-24 20:32 | EKG ---
Date Performed: 04/24/2017 Time Performed: 06:45:00 PTAGE: 81 years EKG: Sinus rhythm LEFT BUNDLE BRANCH BLOCK ABNORMAL ECG SINCE PRIOR TRACING NO SIGNIFICANT CHANGE PREVIOUS TRACING : 06/09/2013 10.39 DOCTOR: Ciera Maher Interpretating Date/Time 04/24/2017 20:30:50
[2017-04-25] VITALS: BP 121/64; PULSE 74; RESP 17; TEMP 97.9; O2SAT 91
[2017-04-25] MEDS: LACTATED RINGER'S 1000 ML INJ 1,000 ML IV SCH (04:54)
[2017-04-25] MEDS ORDERED: LEVOTHYROXINE SODIUM 50 MCG TAB PO SCH (06:00)
[2017-04-25] MEDS: PCA - TOTAL MG MORPHINE DELIVERED PER SHIFT SCH (06:00)
[2017-04-25 08:00] VITALS: BP 135/61; PULSE 77; RESP 16; TEMP 96.8; O2SAT 93
[2017-04-25] MEDS ORDERED: HYDR-3516 PO (08:46)
--- NOTE | 2017-04-25 08:47 | HHI.DS ---
Discharge Summary Admission Date Apr 24, 2017 at 05:47 Discharge Date: Apr 25, 2017 Admitting Diagnosis Brief History 81-year-old female admitted for laparoscopic repair of hiatal hernia with mesh CBC/BMP: 04/24/17 0645 Significant Findings Laboratory Tests Test 04/24/17 06:45 Monocytes (%) (Auto) 9.3 % (0.0-8.0) Eosinophils (%) (Auto) 4.6 % (0.0-4.0) Lymphocytes # (Auto) 0.8 TH/MM3 (1.0-4.8) PE at Discharge Alert and awake Cardio: RRR Resp: CTAB Abd: lap site c/d/i Hospital Course This is an 81-year-old female postoperative day #1 from a laparoscopic repair of hiatal hernia with mesh. The patient was able to tolerate a full liquid diet. She will go home on a full liquid diet. Her pain was controlled using oral pain medications. The patient will follow-up in the office on with Dr. Rutherford. Pt Condition on Discharge: Good Discharge Disposition: Discharge Home Discharge Instructions DIET: Follow Instructions for: Full Liquid Diet Activities you can perform: See Additionl Instruction Other Activity Instructions: Okay to shower; pat incisions dry Avoid heavy pushing pulling or lifting Judy Molina Apr 25, 2017 08:47
[2017-04-25] MEDS ORDERED: HYDROCHLOROTHIAZIDE 25 MG TAB PO SCH (09:00)
[2017-04-25] MEDS ORDERED: PANTOPRAZOLE SOD 40 MG DELAYED RELEASE TAB PO SCH (09:00)
[2017-04-25] MEDS ORDERED: CHOLECALCIFEROL (VIT D3) 1000 UNIT TAB PO SCH (09:00)
== END 2017-04-25 10:58 | disposition home or self-care (01) | DRG 327 ==
LOC: HSDI 05:47 → INTOOBSV 05:47 → OBSVTOIN 09:58 → N07A 15:35
PROVIDERS: ADMIT Surgery Trauma Surgery; ATTEND Surgery Trauma Surgery
PROC: 0DV44ZZ Restriction of Esophagogastric Junction, Percutaneous Endoscopic Approach (ICD-10-PCS; 2017-04-24)
PROC: 0BUT4JZ Supplement Diaphragm with Synthetic Substitute, Percutaneous Endoscopic Approach (ICD-10-PCS; principal; 2017-04-24 08:02)
DX: K44.9 Diaphragmatic hernia without obstruction or gangrene (principal); I42.9 Cardiomyopathy, unspecified; I73.9 Peripheral vascular disease, unspecified; K31.84 Gastroparesis; K22.70 Barrett's esophagus without dysplasia; K22.4 Dyskinesia of esophagus; K21.9 Gastro-esophageal reflux disease without esophagitis; N18.2 Chronic kidney disease, stage 2 (mild); E03.9 Hypothyroidism, unspecified; E66.9 Obesity, unspecified; I12.9 Hypertensive chronic kidney disease with stage 1 through stage 4 chronic kidney disease, or unspecified chronic kidney disease; Z92.21 Personal history of antineoplastic chemotherapy; Z85.05 Personal history of malignant neoplasm of liver; Z85.72 Personal history of non-Hodgkin lymphomas
CPT/HCPCS: 85025; 93005; C1781; J0131; J0690; J2405; J3010; J7120